=== PATIENT | male | born 1975 | race Two or more races ===

== ENCOUNTER → 2017-04-23 | Outpatient (CLI) | payer OTHER ==
[~2017-04-23] MED LIST: ETODOLAC300 MG PO; IRON325 MG PO; LASIX PO; LASIX20 MG PO; MIDODRINE PO; SPIRONOLACTONE50 MG PO; VITAMIN B-1100 M1 PO
--- NOTE | ~2017-04-23 | EKG ---
PATIENT: TORIN HERNANDEZ UNIT #: [id number] Ventricular Rate: 66 BPM Atrial Rate: 66 BPM P-R Interval: 170 ms QRS Duration: 98 ms Q-T Interval: 406 ms QTC Calculation(Bezet): 425 ms P [place]: 67 degrees Calculated R [place]: 55 degrees Calculated T [place]: 67 degrees Diagnosis Line: Normal sinus rhythm Diagnosis Line: Normal ECG Diagnosis Line: No previous ECGs available Diagnosis Line: Confirmed by DAKOTA ANGELA MD ([id number]) on Diagnosis Line: 04/24/2017 9:03:09 AM INTERPRETING MD: JULIO CÉSAR GRIFFIN
[2017-04-23 09:20] LABS: HEMATOCRIT 36.6 % (38.0-50.0); HEMOGLOBIN 12.4 gm/dL (13.0-16.0); MEAN CELL VOLUME 90.8 FL (83-96); MEAN CORPUSCULAR HEMOGLOBIN 30.8 PG (28-34); MEAN PLATELET VOLUME 8.7 FL (6.5-11.5); RED BLOOD COUNT 4.03 X10e (3.90-5.60); RED CELL DISTRIBUTION WIDTH 14.1 % (11.0-15.5)
[2017-04-23 10:26] LABS: ALBUMIN SERUM 3.1 g/dL (3.5-5.0); BILIRUBIN,TOTAL 0.8 mg/dL (0.2-2.0); CALCIUM SERUM 9.1 mg/dL (8.4-10.2); GLOM FILT RATE Estimated 93.7 mL/min (>60); POTASSIUM 4.8 mmol/L (3.5-5.1); PROTEIN TOTAL SERUM 6.3 g/dL (6.0-8.3)
== END | disposition home or self-care (01) ==
LOC: CAMB 08:57
PROVIDERS: Specialist
DX: Z01.818 Encounter for other preprocedural examination (principal); K40.90 Unilateral inguinal hernia, without obstruction or gangrene, not specified as recurrent
CPT/HCPCS: 36415; 80053; 85027; 93005

== ENCOUNTER → 2017-04-27 | Outpatient (CLI) | payer OTHER ==
--- NOTE | ~2017-04-27 | CT2 ---
[facility] A Service of [facility] RADIOLOGY TEXT RESULTS PATIENT: TORIN HERNANDEZ LOCATION: CCAT : 77 UNIT #: [id number] AGE: [address]: Manuel Rodriguez MD SEX: M ORDER DR: [id number] [facility] [address] [place], [place] [address] [id number] O MR#: [id number] Acc #: [id number] NAME: TORIN HERNANDEZ : 1975 SEX: M STUDY DATE/TIME: 04/27/2017 18:49 UNIT: CCAT ROOM: STUDY DESCRIPTION: CT Abd and Pelv W Cont Attending Physician: Manuel Rodriguez M.D. Referring Physician: Manuel Rodriguez M.D. Ordering Physician: Manuel Rodriguez M.D. Primary Care Physician: Micah Montoya M.D. MEDICAL IMAGING REPORT This report is preliminary unless electronic signature is present EXAM CT of the abdomen and pelvis with contrast. HISTORY 41-year-old male with abdominal discomfort for over a year. History of umbilical hernia repair, 05/01/2017. History of ascites and history of alcohol abuse and cirrhosis. TECHNIQUE Axial images performed through the abdomen and pelvis following IV contrast. Multiplanar reconstructed reviewed at a workstation. This CT exam was performed with one or more of the following radiation dose reduction techniques: automatic exposure control, adjustment of mA and/or kV according to patient size, and iterative reconstruction. FINDINGS ABDOMEN: Lung bases unremarkable. The liver demonstrates subtle decreased attenuation within the posterior aspect of the right hepatic lobe. This appears to be regional and distribution and probably related to vascular enhancement pattern as opposed to a true mass. 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 Mild splenomegaly. Pancreas, kidneys and adrenal glands unremarkable. Small amount of ascites. The stomach, small bowel and colon unremarkable. Moderate amount of retained gastric contents. Retroperitoneum unremarkable. PELVIS: Bladder and prostate appears normal. The osseous structures unremarkable. Small umbilical hernia predominately distended by ascitic fluid measuring up to 7 cm in greatest dimension. IMPRESSION 1. Small moderate amount of ascites. 2. Splenomegaly and TIPS shunt catheter or stent noted extending from [facility] A Service of [facility] RADIOLOGY TEXT RESULTS PATIENT: TORIN HERNANDEZ LOCATION: CCAT : [birth year] UNIT #: [id number] AGE: [address]: Manuel Rodriguez MD SEX: M ORDER DR: the clara hepatis or from the portal vein to the intrahepatic IVC. 3. Mild splenomegaly. 4. Small fluid containing umbilical hernia. Dictated by... Pam Fitzpatrick M.D. THIS IS AN ELECTRONICALLY VERIFIED REPORT Pam Fitzpatrick M.D. at 04/29/2017 7:58 AM Pradip TD: 04/28/2017 22:45 JOB #: [id number] MEDICAL IMAGING REPORT Page 1 of 1 COPY
[2017-04-27 17:36] LABS: POC - CREATININE 0.69 mg/dL (0.64-1.27); POC - GFR >60.0 mL/min (>60)
== END | disposition home or self-care (01) ==
LOC: CCAT 16:40
PROVIDERS: Internal Medicine Medical Oncology
DX: D69.59 Other secondary thrombocytopenia (principal); K70.30 Alcoholic cirrhosis of liver without ascites; K42.0 Umbilical hernia with obstruction, without gangrene; R18.8 Other ascites; R16.1 Splenomegaly, not elsewhere classified; K42.9 Umbilical hernia without obstruction or gangrene
CPT/HCPCS: 74177; 82565; Q9967

== ENCOUNTER → 2017-04-30 | Day surgery (SDC) | payer OTHER ==
--- NOTE | ~2017-04-30 | OR ---
Unit #: [id number] #: [id number] Patient: TORIN HERNANDEZ [id number] [facility] [address] [place], [place] [address] [id number] O MR#: [id number] NAME: TORIN HERNANDEZ ROOM: Date of Procedure: 04/30/2017 Admission Date: 04/30/2017 Surgeon: Timothy Mead M.D. : 1975 Attending Physician: Timothy Mead M.D. Referring Physician: Timothy Mead M.D. Primary Care Physician: Micah Hitchcock OPERATIVE REPORT PREOPERATIVE DIAGNOSIS Chronic umbilical hernia. POSTOPERATIVE DIAGNOSIS Chronic umbilical hernia. PROCEDURE PERFORMED Open repair with 8 cm Ventralex mesh. ANESTHESIA General endotracheal anesthesia. ESTIMATED BLOOD LOSS Less than 20 mL. INDICATIONS FOR PROCEDURE Mr. Hernandez is a 41-year-old gentleman who developed portal hypertension from cirrhosis and developed uncontrolled ascites and then subsequent umbilical hernia. He subsequently was able to discontinue his alcohol intake and remain sober and he underwent a TIPS procedure, which has controlled his ascites. He now would like to have his hernia repaired. Preoperatively, an x-ray was performed to see if any preoperative paracentesis should be done and there was not enough fluid to do a percutaneous paracentesis. DESCRIPTION OF PROCEDURE The patient was admitted to [facility], positively identified, and transported to the operating room, and after induction of general endotracheal anesthesia, he received IV antibiotics per SCIP protocol, and was prepped and draped in usual sterile fashion. Just below the umbilicus in the skin line, a transverse incision was made. I dissected down and the hernia sac from the umbilical skin. I then elevated the hernia sac and opened the hernia sac at the level of the fascia and excised the hernia sac circumferentially. I palpated through the defect and no other fascial defects were felt. There was some residual ascites once the fascia was opened and a pool tip sucker was used to remove another 500 mL of ascites. An 8 cm Ventralex patch was placed into the peritoneal cavity and pulled up taut against the anterior abdominal wall. It was secured circumferentially with 0 Ethibond interrupted sutures and the fascia was closed with multiple 0 Ethibond sutures. I then infiltrated 30 mL of 0.5% Marcaine epinephrine in the fascia and soft tissue. An umbilicoplasty was performed, followed by Unit #: [id number] #: [id number] Patient: TORIN HERNANDEZ closure of the soft tissue with 2-0 Vicryl interrupted suture and reapproximation of the skin with 4-0 Monocryl subcuticular closure. Dermabond skin adhesive was used as a dressing. Sponges and needle counts were correct x3. The patient tolerated the procedure well and was transported to the recovery in stable condition. Findings and postoperative instructions were discussed with his family. Dictated by... Viji Marquez/lilian TD: 05/01/2017 02:10 JOB #: [id number] OPERATIVE REPORT Page 1 of 1 X Timothy Mead MD PROCEDURE OPERATIVE NOTE
== END | disposition home or self-care (01) ==
LOC: CSUR 10:40
DX: K42.9 Umbilical hernia without obstruction or gangrene (principal); K76.6 Portal hypertension; K74.60 Unspecified cirrhosis of liver; R18.8 Other ascites; K21.9 Gastro-esophageal reflux disease without esophagitis; F17.200 Nicotine dependence, unspecified, uncomplicated
CPT/HCPCS: J0131; J0690; J1885; J2250; J2405; J3010

== ENCOUNTER → 2017-06-16 | Outpatient (CLI) | payer OTHER ==
[2017-06-16 09:40] LABS: HEMATOCRIT 36.2 % (38.0-50.0); HEMOGLOBIN 12.3 gm/dL (13.0-16.0); MEAN CELL VOLUME 91.3 FL (83-96); MEAN CORPUSCULAR HEMOGLOBIN 31.1 PG (28-34); MEAN CORPUSCULAR HGB CONC 34.1 g/dL (30-36); MEAN PLATELET VOLUME 8.7 FL (6.5-11.5); RED BLOOD COUNT 3.97 X10e (3.90-5.60); RED CELL DISTRIBUTION WIDTH 14.5 % (11.0-15.5); WHITE BLOOD COUNT 6.3 X10e3 (4.0-10.5)
[2017-06-16 10:14] LABS: ALBUMIN SERUM 3.6 g/dL (3.5-5.0); BILIRUBIN,TOTAL 1.4 mg/dL (0.2-2.0); CALCIUM SERUM 9.5 mg/dL (8.4-10.2); GLOM FILT RATE Estimated 93.7 mL/min (>60); POTASSIUM 4.4 mmol/L (3.5-5.1)
== END | disposition home or self-care (01) ==
LOC: CAMB 08:39
PROVIDERS: Specialist
DX: Z01.812 Encounter for preprocedural laboratory examination (principal); K43.9 Ventral hernia without obstruction or gangrene
CPT/HCPCS: 36415; 80053; 85027

== ENCOUNTER → 2017-06-23 | Day surgery (SDC) | payer OTHER ==
--- NOTE | ~2017-06-23 | OR ---
Unit #: [id number] #: [id number] Patient: TORIN HERNANDEZ [id number] [facility] [address] [place], [place] [address] [id number] O MR#: [id number] NAME: TORIN HERNANDEZ ROOM: Date of Procedure: 06/23/2017 Admission Date: 06/23/2017 Surgeon: Timothy Mead M.D. : 1975 Attending Physician: Timothy Mead M.D. Primary Care Physician: Micah Hitchcock OPERATIVE REPORT PREOPERATIVE DIAGNOSIS Ventral hernia. POSTOPERATIVE DIAGNOSIS Ventral hernia. PROCEDURES PERFORMED Diagnostic laparoscopy, laparoscopic ventral hernia repair using a 6-inch round Echo mesh, removal of previously placed Ventralex mesh. ANESTHESIA General endotracheal anesthesia. ESTIMATED BLOOD LOSS Less than 20 mL. INDICATIONS FOR PROCEDURE Mr. Hernandez is a 41-year-old gentleman with a history of portal hypertension, who had massive uncontrolled ascites. The patient subsequent underwent a TIPS procedure and has had resolution and control of his ascites. He initially presented with a very large umbilical hernia from his longstanding ascites that was repaired with an open repair, so that an umbilicoplasty could be performed due to the proboscis appearance of his umbilical skin. He initially did well, but then came back with a painful bulge above the umbilicus about 3 to 4 cm above the previous repair. On examination, he had a reducible but palpable ventral hernia. DESCRIPTION OF PROCEDURE The patient was admitted to [facility], positively identified, and transported to the operating room, and after induction of general endotracheal anesthesia, he received IV antibiotics per SCIP protocol. He was prepped and draped in usual sterile fashion. In the left upper quadrant, a 5 mm incision was made and then an Optiview trocar was used to enter into the peritoneal cavity and created a pneumoperitoneum. Laparoscope was introduced into the peritoneal cavity under direct vision along the left lateral abdominal wall. 10 mm and a 5-mm trocars were placed. Adhesions to the old mesh were taken down by cautery and blunt dissection. The mesh was well positioned; however, above the superior margin of the mesh, it appears though there was an extension of the fascial defect with herniation of omentum above the mesh and out through the fascial weakness. I put two 5 mm trocars along the right lateral abdominal wall and then dissected the old mesh off the Unit #: [id number] #: [id number] Patient: TORIN HERNANDEZ abdominal wall. With the sutures were holding the mesh, the sutures were cut and the mesh was completely freed up and brought out through the 10 mm trocar site. I then cleaned up the anterior abdominal wall and ensured that there were no other incarcerated components. I then took a 6-inch round Echo mesh and passed in the peritoneal cavity. Using an Endo Close device, the insufflation tubing was brought out through the central portion of the fascial defect. The positioning device was inflated and the mesh was positioned creating a very large overlap of mesh over the area of weakness. The mesh was then secured circumferentially with SecureStrap brian. The balloon positioning device was removed and then a second and third row of SecureStrap tacking brian were placed. The mesh was very well positioned. It was photodocumented. There was good hemostasis. The 10 mm trocar site was closed with the neoClose device. The closure was airtight. I then reduced the pneumoperitoneum as I removed laparoscope and trocars. 0.5% Marcaine with epinephrine was infiltrated in each trocar site. Skin was closed with 4-0 Monocryl subcuticular closure and Dermabond skin adhesive. Findings and postoperative instructions were discussed with the patient's significant other. He will be discharged home in stable condition. Dictated by... Viji Marquez/lilian TD: 06/23/2017 17:34 JOB #: [id number] OPERATIVE REPORT Page 1 of 1 X Timothy Mead MD X PROCEDURE OPERATIVE NOTE
== END | disposition home or self-care (01) ==
LOC: CSUR 08:48
DX: K43.9 Ventral hernia without obstruction or gangrene (principal); K21.9 Gastro-esophageal reflux disease without esophagitis; F17.210 Nicotine dependence, cigarettes, uncomplicated; Z79.899 Other long term (current) drug therapy; Z98.890 Other specified postprocedural states
CPT/HCPCS: J0330; J0690; J1170; J1885; J2250; J2405; J3010